=== PATIENT | female | born 1950 | race Caucasian/White ===

== ENCOUNTER 2020-11-16 07:51 | Outpatient (CLI) | payer MEDICARE, BC, SELFPAY ==
--- NOTE | ~2020-11-16 | DEXA_ITS ---
Bone Density Report Name: Jayashree Millard Age: 70 Sex: Female Ethnicity: White Date of : 1950 Indication: osteopenia; height loss; history of glucocorticoids; hysterectomy; Referring Provider: Milad, [place] Study: Bone densitometry was performed. Exam Date: November 16, 2020 Accession number: [id number] Bone Density: Region BMD T-score Z-score Classification AP Spine (L2, L3, L4) 0.966 -1.0 1.1 Normal Femoral Neck (Left) 0.494 -3.2 -1.4 Osteoporosis Total Hip (Left) 0.712 -1.9 -0.4 Osteopenia Total Hip Bilateral Avg 0.775 -1.4 0.1 Osteopenia Femoral Neck (Right) 0.563 -2.6 -0.8 Osteoporosis Total Hip (Right) 0.837 -0.9 0.6 Normal World Health Organization criteria for BMD impression classify patients as: Normal (T-score at or above -1.0), Osteopenia (T-score between -1.0 and -2.5), or Osteoporosis (T-score at or below -2.5). 10-year Fracture Risk: FRAX not reported because: Some T-score for Spine Total or Hip Total or Femoral Neck at or below -2.5 Previous Exams: Region Exam Age BMD T-score BMD Change BMD Change Date g/cm2 vs Baseline vs Previous AP Spine(L2, L3, L4) 11/16/2020 70 0.966 -1.0 0.053(5.8%)* 0.091(10.4%)# 10/24/2018 68 0.875 -1.9 -0.038(-4.1%)# -0.057(-6.1%)# 04/01/2016 65 0.932 -1.3 0.019(2.1%) 0.019(2.1%) 02/25/2013 62 0.913 -1.5 Total Hip(Left) 11/16/2020 70 0.712 -1.9 -0.177(-19.9%) -0.086(-10.8%) 10/24/2018 68 0.798 -1.2 -0.091(-10.2%) -0.056(-6.5%)# 04/01/2016 65 0.854 -0.7 -0.035(-3.9%)# -0.035(-3.9%)# 02/25/2013 62 0.888 -0.4 Total Hip(Right) 11/16/2020 70 0.837 -0.9 -0.134(-13.8%) 0.052(6.7%)# 10/24/2018 68 0.785 -1.3 -0.187(-19.2%) -0.009(-1.1%)# 04/01/2016 65 0.794 -1.2 -0.178(-18.3%) -0.178(-18.3%) 02/25/2013 62 0.972 0.2 *Denotes significance at 95% confidence level, LSC for AP Spine = 0.022 g/cm2, LSC for Total Hip = 0.027 g/cm2 Clinical Information Provided by Patient: Has taken Glucocorticoids Has used the following medications: Vitamin D, Calcium Has the following medical conditions: Hysterectomy Patient maximum height was 65 Menopause Age: 58 No regular weight bearing exercise Does not regularly consume dairy products Drinks caffeinated beverages Onset of menses at age 14 Number of children 3 Impression: The patient has osteoporosis, based on the Left Femoral Neck T-score. The patient has risk factors, including: history of g
== END 2020-11-16 07:52 | disposition home or self-care (01) ==
PROVIDERS: PCP Physician Assistant; Visit Provider Nurse Practitioner
DX: M85.88 Other specified disorders of bone density and structure, other site (principal); M81.0 Age-related osteoporosis without current pathological fracture; M85.852 Other specified disorders of bone density and structure, left thigh; M85.851 Other specified disorders of bone density and structure, right thigh
CPT/HCPCS: 77080

== ENCOUNTER 2022-11-19 13:48 | Outpatient (CLI) | payer MEDICARE, BC, SELFPAY ==
--- NOTE | ~2022-11-19 | DEXA_ITS ---
Bone Density Report Name: KEITH GOMEZ Age: 72 Sex: Female Ethnicity: White Date of : 1950 Indication: osteopenia; monitoring treatment; height loss; history of glucocorticoids; prior fracture; hysterectomy; postmenopausal Referring Provider: HOLLIS, NARDA Study: Bone densitometry was performed. Exam Date: November 19, 2022 Accession number: [id number] Bone Density: Region BMD T-score Z-score Classification AP Spine(L1-L4) 0.964 -0.8 1.4 Normal Femoral Neck (Left) 0.745 -0.9 0.9 Normal Total Hip (Left) 0.944 0.0 1.6 Normal Femoral Neck (Right) 0.718 -1.2 0.7 Osteopenia Total Hip (Right) 0.793 -1.2 0.4 Osteopenia Total Hip Mean 0.869 -0.6 1.0 Normal World Health Organization criteria for BMD impression classify patients as: Normal (T-score at or above -1.0), Osteopenia (T-score between -1.0 and -2.5), or Osteoporosis (T-score at or below -2.5). 10-year Fracture Risk: FRAX not reported because: Treated for osteoporosis Previous Exams: Region Exam Age BMD T-score BMD Change BMD Change Date g/cm2 vs Baseline vs Previous AP Spine (L1-L4) 11/19/2022 72 0.964 -0.8 0.048 (5.2%)* 0.023 (2.5%)* 04/01/2016 65 0.940 -1.0 0.024 (2.7%)* 0.024 (2.7%)* 02/25/2013 62 0.916 -1.2 Total Hip(Left) 11/19/2022 72 0.944 0.0 0.056 (6.3%)# 0.232 (32.6%)# 11/16/2020 70 0.712 -1.9 -0.177 (-19.9% -0.086 (-10.8% 10/24/2018 68 0.798 -1.2 -0.091 (-10.2% -0.056 (-6.5%) 04/01/2016 65 0.854 -0.7 -0.035 (-3.9%) -0.035 (-3.9%) 02/25/2013 62 0.888 -0.4 Total Hip(Right) 11/19/2022 72 0.793 -1.2 -0.178 (-18.3% -0.044 (-5.2%) 11/16/2020 70 0.837 -0.9 -0.134 (-13.8% 0.052 (6.7%)# 10/24/2018 68 0.785 -1.3 -0.187 (-19.2% -0.009 (-1.1%) 04/01/2016 65 0.794 -1.2 -0.178 (-18.3% -0.178 (-18.3% 02/25/2013 62 0.972 0.2 *Denotes significance at 95% confidence level, LSC for AP Spine = 0.022 g/cm2, LSC for Total Hip = 0.027 g/cm2 # Denotes dissimilar scan types or analysis methods Clinical Information Provided by Patient: Has had a low trauma fracture Has taken Glucocorticoids Is being treated for osteoporosis Has used the following medications: Prolia (i.e. denosumab), Vitamin D, Calcium Has the following medical conditions: Hysterectomy Patient maximum height was 65.0 Menopause Age: 58 Drinks caffeinated beverages Onset of menses at age 14 Number of children 3 C[place]ar
== END 2022-11-19 13:49 | disposition home or self-care (01) ==
PROVIDERS: PCP Physician Assistant; Visit Provider Nurse Practitioner
DX: M85.88 Other specified disorders of bone density and structure, other site (principal); M85.851 Other specified disorders of bone density and structure, right thigh
CPT/HCPCS: 77080